=== PATIENT | female | born 1990 | race Caucasian/White ===

== ENCOUNTER 2024-07-21 13:06 | Emergency (ER) | payer SELFPAY ==
--- NOTE | 2024-07-21 13:22 | PC.NURSE ---
Pt ambulates to intake desk stating she was going to urgent care.
== END 2024-07-21 14:04 | disposition left against medical advice (07) ==
LOC: ANHED 13:25
DX: Z53.21 Procedure and treatment not carried out due to patient leaving prior to being seen by health care provider (principal)
CPT/HCPCS: 99199

== ENCOUNTER 2024-07-21 13:41 | Emergency (ER) | payer SELFPAY ==
[2024-07-21 13:48] VITALS: BP 111/80; PULSE 80; RESP 16; TEMP 36.8; O2SAT 100
--- NOTE | 2024-07-21 15:44 | ED_ITS ---
HPI - Eye Problem General Chief complaint: Eye Problems Stated complaint: Stye Time Seen by Provider: 07/21/24 14:40 Source: patient and RN notes reviewed Mode of arrival: ambulatory Limitations: no limitations History of Present Illness HPI Narrative: 34-year-old female presents [facility] complaining of right upper eyelid swelling. Patient thought she had eyelid stuck under her eye starting over the weekend. Since then the swelling has gotten worse to the patient's right upper eyelid. Patient denies any discharge, fevers, pain dry, or vision changes, blurry vision. Patient has been doing warm compresses without relief. Related Data Allergies Allergy/AdvReac Type Severity Reaction Status Date / Time No Known Allergies Allergy Verified 07/21/24 14:29 Review of Systems Review of Systems: CONSTITUTIONAL: Denies fever, chills, or sweats. EYES: Denies visual changes, redness, or discharge. Positive for eyelid swelling and pain. ENT: Denies rhinorrhea, congestion, sore throat, or otalgia. CARDIOVASCULAR: Denies chest pain, palpitations, or edema. RESPIRATORY: Denies cough or dyspnea. GASTROINTESTINAL: Denies abdominal pain, nausea, vomiting, or diarrhea. GENITOURINARY: Denies dysuria or hematuria. SKIN: Denies rash or itching. MUSCULOSKELETAL: Denies back pain, joint pain, or myalgia. NEUROLOGIC: Denies headache, numbness, or weakness. PSYCHIATRIC: Denies anxiety or depression. All other systems reviewed are negative, except as documented in HPI. PMFSH Comments At the time of my signature, I reviewed and agree with the nursing past medical, surgical, social, and family history. There is no relevant family history pertinent to the patient complaint. Exam Narrative: GENERAL: This is a well-nourished, well-developed adult, in no apparent distress. They are non ill-appearing, nontoxic appearing. HEAD: normocephalic, atraumatic. EYES: Sclera clear/white. Conjunctiva normal. Vision is grossly intact. Extraocular movements intact. Right upper eyelid: Erythematous with painful nodule to the in her lateral. No exudate. Right lower eyelid normal. Left upper and lower eyelids normal. EARS: External ears normal, auditory canals clear and without drainage, TMs normal without perforation. Hearing grossly intact. NOSE: External nose normal with no obvious nasal discharge, nasal turbinates without redness, no rhinorrhea. THROAT: Mucous membranes moist, posterior pharynx clear, without erythema or swelling. Uvula midline. NECK: Neck supple, non-tender without lymphadenopathy, masses or thyromegaly. CARDIOVASCULAR: Regular rate and rhythm RESPIRATORY: Respiratory rate normal, respiratory effort nonlabored, no respiratory distress SKIN: warm, Dry, intact with no suspicious lesions or rash, good texture and turgor. NEURO: awake, alert, and oriented to person, place and time. There were no obvious focal neurologic abnormalities. EXTREMITIES: No joint tenderness, effusion, or edema noted. BACK: Nontender without deformity. No CVA tenderness. Course Course Emergency Course: Portions of this record may have been created with voice recognition software Level of Care: Express Care Visit Vital Signs Vital signs: Vital Signs Temperature 98.2 F 07/21/24 13:48 Pulse Rate 80 07/21/24 13:48 Respiratory Rate 16 07/21/24 13:48 Blood Pressure 111/80 07/21/24 13:48 Pulse Oximetry 100 07/21/24 13:48 Temperature 98.2 F 07/21/24 13:48 Pulse Rate 80 07/21/24 13:48 Respiratory Rate 16 07/21/24 13:48 Blood Pressure 111/80 07/21/24 13:48 Pulse Oximetry 100 07/21/24 13:48 Reviewed MDM - Eye Problem MDM Narrative Medical decision making narrative: Patient likely has internal hordeolum to the right lateral eyelid. Warm compresses recommended. Given the extent of patient's swelling to her eyelid. Will prescribe erythromycin ointment. Discussed physical exam findings. Advised supportive measures and signs/symptoms to go to the ER. Pt is appropriate for outpt treatment and f/u. Differential Diagnosis Differential diagnosis: Likely conjunctivitis and other (Blepharitis, stye) Critical Care Time Critical Care Time Critical Care Time: No Discharge Plan Discharge Clinical Impression: Hordeolum eyelid, internal Qualifiers: Laterality: right Eyelid: upper Qualified Code(s): H00.021 - Hordeolum internum right upper eyelid Patient Disposition: Home Condition: Stable Instructions: Antibiotic Form, Stye (ED) Additional Instructions: Apply warm, moist compresses on the affected area frequently (for 5 to 10 minutes three to four times per day) in order to help with drainage. Massage and gentle wiping of the affected eyelid after the warm compress can also help with drainage. You can use baby shampoo to wash the eye area Avoid wearing eye makeup or contact lenses Take medication as directed. If the lesion does not improve within two weeks, please follow up with an garden labourer for further management. If you have any concerns or any worsening symptoms, or any vision changes please go to the ER immediately Patient Language: Divehi Prescriptions: New erythromycin 5 mg/gram (0.5 %) ointment 1 applic RIGHT EYE .Nightly 7 Days Qty: 3.5 0RF Follow-up/Referrals: PHYSICIAN,ROTARY MACHINE OPERATOR [Primary Care Provider] - Time of Disposition: 14:53
== END 2024-07-21 14:56 | disposition home or self-care (01) ==
DX: H00.021 Hordeolum internum right upper eyelid (principal)
CPT/HCPCS: 99203; G0463